=== PATIENT | female | born 1990 | race African-American/Black ===

== ENCOUNTER 2025-07-31 13:46 | Emergency (ER) | payer MEDICARE, MEDICAID ==
[~2025-07-31] VITALS: Ht 160 cm; Wt 66.0 kg
[2025-07-31 13:47] VITALS: O2SAT 100
[2025-07-31 13:52] VITALS: BP 151/100; PULSE 93; RESP 16; TEMP 36.6; O2SAT 100
[2025-07-31] MEDS: ACETAMINOPHEN 500MG TABLET PO ONE (14:47)
[2025-07-31] MEDS ORDERED: SULF1TAB48 MT (14:53)
[2025-07-31] MEDS: LIDOCAINE HCL 1% 20ML VIAL INL ONE (15:06)
[2025-07-31] MEDS ORDERED: CEPH500C2 MT (15:16)
== END 2025-07-31 15:30 | disposition home or self-care (01) ==
LOC: ER 13:46
DX: L02.411 Cutaneous abscess of right axilla (principal)
CPT/HCPCS: 99284; 10061; J2003